=== PATIENT | female | born 1965 | race African-American/Black ===

== ENCOUNTER 2021-05-11 00:27 | Emergency (ER) | payer SELFPAY ==
[~2021-05-11] VITALS: Ht 172.7 cm; Wt 87.0 kg
[2021-05-11] MEDS ORDERED: ASPIRIN 81MG TABLET PO ONE (01:15)
[2021-05-11 01:49] LABS: BASOPHILS % 0.6 % (0.0-2.0); EOSINOPHILS % 0.4 % (0.0-5.0); HEMATOCRIT. 44.1 % (36.0-48.0); HEMOGLOBIN. 14.6 g/dL (12.0-16.0); LYMPHOCYTES % 37.6 % (20.0-50.0); MEAN CORPUSCULAR HEMOGLOBIN 30.8 pg (28.0-32.0); MEAN CORPUSCULAR VOLUME 92.8 fL (81.0-99.0); MEAN PLATELET VOLUME 10.1 fl (7.4-10.4); MONOCYTES % 5.1 % (2.0-8.0); NEUTROPHILS % 56.3 % (40.0-76.0); PLATELET 185 x1000/uL (130-400); RED BLOOD CELL COUNT 4.75 mill/uL (4.2-5.4); RED CELL DISTRIBUTION WIDTH 14.1 % (11.6-14.6)
[2021-05-11 01:52] LABS: CHLORIDE 106 mEq/L (98-107)
[2021-05-11] MEDS ORDERED: AZIT250T12 MT (03:14)
[2021-05-11 03:25] VITALS: BP 137/81
== END 2021-05-11 03:27 | disposition home or self-care (01) ==
LOC: ER 00:27
DX: R07.89 Other chest pain (principal); J98.11 Atelectasis; J45.909 Unspecified asthma, uncomplicated; F31.9 Bipolar disorder, unspecified; E11.9 Type 2 diabetes mellitus without complications; I10 Essential (primary) hypertension; F20.9 Schizophrenia, unspecified
CPT/HCPCS: 36415; 71045; 80053; 82962; 83880; 84484; 85025; 85379; 93005; 99285